=== PATIENT | female | born 1995 | race Caucasian/White ===

== ENCOUNTER 2018-07-28 19:51 | Emergency (ER) | payer OTHER ==
[~2018-07-28] VITALS: Ht 160 cm; Wt 101.4 kg
[2018-07-28] MEDS ORDERED: birth control (20:00)
[2018-07-28] MEDS ORDERED: CYCL10TA PO (21:22)
[2018-07-28] MEDS ORDERED: IBUP-1022 PO (21:22)
[2018-07-28 21:37] VITALS: BP 143/90
== END 2018-07-28 21:37 | disposition home or self-care (01) ==
LOC: M ED 19:51
DX: M54.12 Radiculopathy, cervical region (principal); G62.9 Polyneuropathy, unspecified; Z79.3 Long term (current) use of hormonal contraceptives; Z79.899 Other long term (current) drug therapy; Z88.5 Allergy status to narcotic agent

== ENCOUNTER → 2019-03-05 | Outpatient (CLI) | payer OTHER ==
[~2019-03-05] MED LIST: CYCL10TA PO; IBUP-1022 PO; birth control
--- NOTE | 2019-03-06 07:30 | REP ---
CHEST PA AND LATERAL: 03/05/2019. CLINICAL HISTORY: Cough for a week. FINDINGS: No prior studies. The lungs are well inflated and without infiltrate, effusion, atelectasis, or mass. The heart, mediastinal and hilar contours are normal. There were a few cuffed bronchi in the perihilar regions that might reflect reactive airway disease or bronchitis. Aorta and airway intact. Bony thorax unremarkable. No free air. IMPRESSION: 1. Perihilar changes of bronchitis or reactive airway disease without consolidation or effusion. Electronically Signed by Ye Fung MD 03/06/2019 08:09 A
== END ==
LOC: M LRY 14:31
PROVIDERS: ATTEND Physician Assistant
DX: R05 Cough (principal)
CPT/HCPCS: 71046; 94640; G0463